=== PATIENT | male | born 1955 | race Caucasian/White ===

== ENCOUNTER 2017-11-12 18:40 | Emergency (ER) | payer SELFPAY | END 2017-11-13 00:12 | disposition left against medical advice (07) | LOC: E/R 18:40 | DX: Z53.21 Procedure and treatment not carried out due to patient leaving prior to being seen by health care provider (principal) ==

== ENCOUNTER 2017-11-13 04:55 | Emergency (ER) | payer SELFPAY ==
[2017-11-13 06:06] LABS: ADD MAN DIFF? NO
[2017-11-13 06:07] LABS: WHITE BLOOD COUNT 7.1 10^3/ul (4.8-10.8)
[2017-11-13 06:07] LABS: BASOPHIL # 0.1 10^3/ul (0.0-0.1); BASOPHILS % 0.7 % (0.0-2.0); EOSINOPHILS % 0.3 % (0.0-7.0); HEMATOCRIT 47.6 % (42.0-52.0); HEMOGLOBIN 15.6 g/dl (14.0-18.0); LYMPHOCYTES # 1.3 10^3/ul (0.8-2.9); LYMPHOCYTES % 18.1 % (15.0-51.0); MEAN CORPUSCULAR HEMOGLOBIN 26.3 pg (29.0-33.0); MEAN CORPUSCULAR HGB CONC 32.8 g/dl (32.0-37.0); MEAN CORPUSCULAR VOLUME 80.1 fl (82.0-101.0); MONOCYTE # 0.4 10^3/ul (0.3-0.9); NEUTROPHIL # 5.4 10^3/ul (1.6-7.5); NEUTROPHILS % 75.8 % (39.0-77.0); PLATELET COUNT 218 10^3/UL (140-415); RED BLOOD COUNT 5.94 10^6/ul (4.70-6.10); RED CELL DISTRIBUTION WIDTH 14.4 % (11.5-14.5)
[2017-11-13] MEDS: NICARDipine HCL 30 MG CAPSULE PO ×2 (06:17→11:47)
[2017-11-13 06:38] LABS: ANION GAP 11 (8-16); BLOOD UREA NITROGEN 19 mg/dl (7-20); CALCIUM 9.7 mg/dl (8.4-10.2); CARBON DIOXIDE 27 mmol/L (21-31); CHLORIDE 110 mmol/L (97-110); CREATININE 0.98 mg/dl (0.61-1.24); GLUCOSE 115 mg/dl (70-220); POTASSIUM 3.8 mmol/L (3.5-5.1); SODIUM 144 mmol/L (135-144)
[2017-11-13 06:50] LABS: B-TYPE NATRIURETIC PEPTIDE 344 PG/ML (0-125); TROPONIN-I < 0.012 ng/ml (0.000-0.120)
[2017-11-13] MEDS: hydrALAzine 20 MG INJ IV ×2 (06:50→08:25)
[2017-11-13] MEDS: SOD CHLORIDE 0.9% 500 ML IV (06:53)
[2017-11-13 07:07] LABS: ADD UMIC YES; UR ASCORBIC ACID NEGATIVE (NEGATIVE); UR BACTERIA FEW /HPF (NONE SEEN); UR BILIRUBIN (Dip) NEGATIVE (NEGATIVE); UR BLOOD (Dip) 2+ mg/dL (NEGATIVE); UR CLARITY CLOUDY (CLEAR); UR COLOR YELLOW (YELLOW); UR GLUCOSE (Dip) NEGATIVE (NEGATIVE); UR KETONES (Dip) NEGATIVE (NEGATIVE); UR LEUKOCYTE ESTERASE (Dip) 3+ Leu/ul (NEGATIVE); UR MUCUS FEW /HPF (NONE SEEN); UR NITRITE (Dip) POSITIVE (NEGATIVE); UR RBC 16 /HPF (0-5); UR SPECIFIC GRAVITY (Dip) 1.019 (1.003-1.030); UR TOTAL PROTEIN (Dip) 2+ mg/dl (NEGATIVE); UR UROBILINOGEN (Dip) 1+ mg/dL (NEGATIVE); UR WBC > 182 /HPF (0-5)
[2017-11-13 07:36] LABS: AMPHETAMINE/METHAMPHETAMINE NEGATIVE (NEGATIVE); BARBITURATES NEGATIVE (NEGATIVE); BENZODIAZEPINES NEGATIVE (NEGATIVE); CANNABINOIDS NEGATIVE (NEGATIVE); COCAINE NEGATIVE (NEGATIVE); OPIATES NEGATIVE (NEGATIVE)
[2017-11-13 08:02] LABS: ACETAMINOPHEN < 10.0 ug/ml (10.0-30.0)
[2017-11-13 08:02] LABS: ETHANOL < 10.0 mg/dl; SALICYLATE < 1.0 mg/dl (5.0-30.0)
[2017-11-13] MEDS: LABETALOL HCL 20MG INJ IV (11:43)
== END 2017-11-13 14:08 | disposition home or self-care (01) ==
LOC: E/R 04:55
DX: I10 Essential (primary) hypertension (principal); R42 Dizziness and giddiness
CPT/HCPCS: 36415; 71045; 80048; 80307; 81001; 83880; 84484; 85025; 93005; 96374; 99285-25